=== PATIENT | female | born 1955 ===

== ENCOUNTER 2023-12-02 09:15 | Inpatient (IN) | payer OTHER ==
[~2023-12-02] VITALS: Ht 162.6 cm; Wt 78.0 kg
[2023-12-02] MEDS ORDERED: MIRALAX17 GM PO (09:42)
[2023-12-02] MEDS ORDERED: TRAMADOL HCL50 MG PO (09:42)
[2023-12-02] MEDS ORDERED: KETO10TA2 PO (09:42)
[2023-12-02] MEDS ORDERED: NEURONTIN300 MG PO (09:42)
[2023-12-02] MEDS ORDERED: BUPIVACAINE HCL/PF 0.25% 30ML VIAL InF ONE (11:30)
[2023-12-02] MEDS ORDERED: CEFAZOLIN SODIUM 1,000 MG VIAL IV ONE (11:30)
[2023-12-02] MEDS ORDERED: KETOROLAC TROMETHAMINE 30 MG VIAL IV ONE (13:15)
[2023-12-02] MEDS ORDERED: MORPHINE SULFATE 4 MG/ML VIAL IV ONE (14:00)
[2023-12-02] MEDS ORDERED: KETOROLAC TROMETHAMINE 30 MG VIAL IV SCH (17:21)
[2023-12-02] MEDS ORDERED: MORPHINE SULFATE 4 MG/ML VIAL IV PRN (17:30)
[2023-12-02] MEDS ORDERED: ENALAPRILAT DIHYDRATE 1.25 MG/ML VIAL IV PRN (17:30)
[2023-12-02] MEDS ORDERED: ONDANSETRON HCL 2 MG/ML VIAL IV PRN (17:30)
[2023-12-02] MEDS ORDERED: 0.9 % SODIUM CHLORIDE 1,000 ML IV SCH (17:30)
[2023-12-02] MEDS ORDERED: GABAPENTIN 300 MG CAPSULE PO SCH (17:49)
[2023-12-02] MEDS ORDERED: ACETAMINOPHEN 500 MG GEL..CAP PO SCH (18:00)
[2023-12-02 19:30] VITALS: BP 98/61; O2SAT 97
[2023-12-03 01:02] VITALS: BP 103/59; O2SAT 97
[2023-12-03 08:00] VITALS: BP 110/71; O2SAT 95
[2023-12-03] MEDS ORDERED: GABAPENTIN 100 MG CAPSULE PO SCH (09:00)
[2023-12-03] MEDS ORDERED: ENOXAPARIN SODIUM 40 MG/0.4 ML SYRINGE SUBCUTANEO SCH (09:00)
[2023-12-03] MEDS ORDERED: POLYETHYLENE GLYCOL 3350 17 GM BLIST.PACK PO SCH (09:00)
[2023-12-03] MEDS ORDERED: FAMOTIDINE/PF 20 MG/2 ML VIAL IV SCH (09:00)
[2023-12-03] MEDS ORDERED: LACTOBACILLUS ACIDOPHILUS 1 CAP CAP PO NR (14:00)
[2023-12-03 16:00] VITALS: BP 147/65; O2SAT 97
[2023-12-03] MEDS ORDERED: SIMETHICONE 125 MG CAPSULE PO SCH (17:00)
[2023-12-04 01:22] VITALS: BP 124/76; O2SAT 98
[2023-12-04 06:51] LABS: HEMATOCRIT 33.6 % (36.0-45.00); HEMOGLOBIN 11.3 g/dL (12.0-15.00); MEAN CELL VOLUME 87.4 fL (80.00-100.00); MEAN CORPUSCULAR HEMOGLOBIN 29.4 pg (27.00-32.0); MEAN CORPUSCULAR HGB CONC 33.6 g/dl (32.0-36.0); PLATELET COUNT 181 K/uL (150-450); RED BLOOD COUNT 3.85 M/uL (4.00-6.00); RED CELL DISTRIBUTION WIDTH 14.3 % (11.5-14.5)
[2023-12-04 07:58] LABS: BILIRUBIN TOTAL 0.4 mg/dL (0.3-1.2); CREATININE SERUM 0.51 mg/dL (0.55-1.02); GFR 119.92; GLOBULINA 2.8 G/DL (2.4-3.5); POTASSIUM 4.15 mEq/L (3.5-5.1); TOTAL PROTEIN 5.8 gm/dL (6.4-8.2)
[2023-12-04 08:58] VITALS: BP 131/70; O2SAT 97
[2023-12-04] MEDS ORDERED: LACTOBACILLUS ACIDOPHILUS 1 CAP CAP PO SCH (09:00)
== END 2023-12-04 09:01 | disposition home or self-care (01) | DRG 355 ==
LOC: CIR.AMB 09:15 → SURH 18:06
PROVIDERS: Internal Medicine; ADMIT Surgery; ATTEND Surgery
PROC: 0WQF4ZZ Repair Abdominal Wall, Percutaneous Endoscopic Approach (ICD-10-PCS; principal; 2023-12-02 07:00)
DX: K42.0 Umbilical hernia with obstruction, without gangrene (principal)